=== PATIENT | female | born 1985 | race Caucasian/White ===

== ENCOUNTER → 2021-04-10 09:55 | Outpatient (BNVA) | payer BC, SELFPAY | PROVIDERS: Family Provider Nurse Practitioner; PCP Nurse Practitioner Family; Visit Provider Nurse Practitioner Family | DX: Z00.00 Encounter for general adult medical examination without abnormal findings (principal); E03.9 Hypothyroidism, unspecified; Z13.6 Encounter for screening for cardiovascular disorders; Z79.899 Other long term (current) drug therapy; E55.9 Vitamin D deficiency, unspecified | CPT/HCPCS: 80053; 80061; 81003; 82306; 83036; 83516; 84439; 85025 ==

== ENCOUNTER 2022-11-09 23:05 | Emergency (ER) | payer BC, MEDICAID, SELFPAY ==
[2022-11-09 23:16] VITALS: BP 127/78; PULSE 89; RESP 16; TEMP 36.9; O2SAT 96; BMI 35.1
--- NOTE | 2022-11-09 23:16 | ED_ITS ---
HPI - Headache General: Chief Complaint: Headache Stated Complaint: Pain From top of head to back of head Time Seen by Provider: 11/09/22 23:15 History of Present Illness: 37-year-old female comes in today with complaints of pain radiating from the yazidi area down to the neck across the scalp. Patient reports it does not feel like a headache. Patient denies any fever. Patient reports history of poor dentition with multiple caries. Patient takes routinely levothyroxine for th yroid disorder. Patient denies any other routine medications. Patient appears nontoxic. Patient appears in mild pain. Patient denies history of migraines or neck injury. Review of Systems General: Reports: 10 or more systems reviewed and unremarkable except in HPI and below Neuro: Reports: headache(s) PFSH ED PFSH: Medical History Abnormal Pap smear of cervix Seen in 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 Vitamin D deficiency Surgical History S/P section 3 C-sections Last 2019 - MARC[facility]ada Social History Smoking and tobacco status: current every day smoker Physical Exam Const: COMMON NORMALS: alert HENMT: HEAD & SCALP: occipital foramen tenderness, scalp tenderness and Temporal artery tenderness present MOUTH: Normal oral and palatal mucosa present TEETH & GINGIVA: Yes poor dentition THROAT: posterior oropharynx normal Neck/C-Spine: COMMON NORMALS: no meningeal signs Resp: COMMON NORMALS: normal respiratory effort Cardio: COMMON NORMALS: regular rate RATE: regular rate Back/Pelvis: COMMON NORMALS: thoracic and lumbar spine normal to inspection Extremity: COMMON NORMALS: normal to inspection Neuro: SENSORIUM/ORIENTATION: Yes alert MENINGEAL SIGNS: Yes no meningeal signs Skin: COMMON NORMALS: turgor normal GENERAL SKIN EXAM: turgor normal Course Vital Signs: Vital signs: Vital Signs Temperature 98.5 F 11/09/22 23:16 Pulse Rate 82 11/10/22 00:13 Respiratory Rate 16 11/10/22 00:13 Blood Pressure 134/74 11/10/22 00:13 Pulse Oximetry 98 11/10/22 00:13 Oxygen Delivery Me thod Room Air 11/10/22 00:13 MDM - Headache Medical Decision Making 37-year-old female comes in today with complaints of headache. Patient reports that she has tenderness along the scalp from her yazidi area to her posterior scalp and neck. On exam patient has tenderness of the occipital foramen bilaterally, and bilateral yazidi tenderness. Pupils are equal and reactive. Normal light reflex. Vital signs are normal. Respirations are even lungs are clear to auscultation. Differential diagnosis includes but not limited to occipital neuralgia, tension headache, vasculitis, migraine headache. CT of the head noted some left maxillary sinus disease, no mass effect or acute intracranial bleeding. CBC and CMP showed no significant abnormalities. CRP was 12.7. Patient will be placed on some cephalexin to cover for the sinus disease. Patient be kept on prednisone to treat for occipital neuralgia and prevent recurrence of the headache. Patient was given headache cocktail in the ER which resolved her headache at this time. Patient also given some naproxen for further complaints of pain. Patient was stable and released to home with recommendations for follow-up. Lab Data 11/10/22 00:09 11/10/22 00:[address] 11/09/22 23:27 IMPRESSION: 1. No evidence of acute intracranial hemorrhage, mass effect, or edema. 2. Possible left maxillary sinus disease. Laboratory Results WBC 10.0 10^3/uL (4.0-10.0) 11/10/22 00:09 RBC 4.47 10^6/uL (4.1-5.3) 11/10/22 00:09 Hgb 11.7 g/dL (11.5-15.3) 11/10/22 00:09 Hct 37.9 % (37.0-47.0) 11/10/22 00:09 MCV 84.8 fl (81-99) 11/10/22 00: MCH 26.2 pg (28.0-34.0) L 11/10/22 00: MCHC 30.9 g/dL (30.0-36.0) 11/10/22 00:09 RDW 15.9 % (12.1-15.1) H 11/10/22 00:09 Plt Count 317 10^3/cmm (130-400) 11/10/22 00:09 MPV 11.1 fL (7.4-10.4) H 11/10/22 00:09 Neut % (Auto) 53.7 % 11/10/22 00:09 Lymph % (Auto) 34.2 % 11/10/22 00:09 [place] % (Auto) 8.7 % 11/10/22 00:09 Eos % (Auto) 2.6 % 11/10/22 00:09 Baso % (Auto) 0.7 % 11/10/22 00:09 Neut # (Auto) 5.34 10^3/uL (1.8-7.7) 11/10/22 00:09 Lymph # (Auto) 3.4 10^3/uL (0.8-4.8) 11/10/22 00:09 [place] # (Auto) 0.9 10^3/uL (0.2-0.9) 11/10/22 00:09 Eos # (Auto) 0.3 10^3/uL (0.0-0.8) 11/10/22 00:09 Baso # (Auto) 0.1 10^3/uL (0.0-0.1) 11/10/22 00:09 Nucleated RBC % (auto) 0 % 11/10/22 00:09 Nucleated RBCs # 0.0 /100WBC 11/10/22 00:09 Sodium 135 mmol/L (136-145) L 11/10/22 00:09 Potassium 3.3 mmol/L (3.5-5.1) L 11/10/22 00:09 Chloride 99 mmol/L (98-107) 11/10/22 00:09 Carbon Dioxide 26 mmol/L (22-29) 11/10/22 00:09 Anion Gap 13.3 (5-19) 11/10/22 00:09 BUN 5 mg/dL (6-20) L 11/10/22 00:09 Creatinine 0.7 mg/dL (0.5-0.9) 11/10/22 00:09 GFR Calculation 94.2 mL/min (90-130) 11/10/22 00:09 Glucose 95 mg/dL (65-115) 11/10/22 00:09 Calculated Osmolality 277 mOsm/kg (285-295) L 11/10/22 00:09 Calcium 8.4 mg/dL (8.5-10.5) L 11/10/22 00:09 Total Bilirubin 0.2 mg/dL (0.15-1.2) 11/10/22 00:09 AST 14 U/L (0-32) 11/10/22 00:09 ALT 13 U/L (0-33) 11/10/22 00:09 Alkaline Phosphatase 80 U/L (35-105) 11/10/22 00:09 C-Reactive Protein 12.7 mg/L (0.0-4.9) H 11/10/22 00:09 Total Protein 6.6 g/dL (6.6-8.7) 11/10/22 00:09 Albumin 4.1 g/dL (3.5-5.2) 11/10/22 00:09 Globulin 2.5 g/dL (1.3-4.6) 11/10/22 00:09 Discharge Plan Discharge Patient Disposition: Home Clinical Impression: Bilateral occipital neuralgia Sinusitis Qualifiers: Sinusitis location: unspecified location Chronicity: unspecified Qualified Code(s): J32.9 - Chronic sinusitis, unspecified Condition: Stable Prescriptions: New prednisone 20 mg tablet 20 mg PO BID 3 Days Qty: 6 0RF naproxen 500 mg tablet 500 mg PO BID Qty: 14 0RF Continued cephalexin 500 mg capsule 500 mg PO TID 7 Days Qty: 21 0RF No Action Classic 28 mg iron- 800 mcg tablet PO DAILY levothyroxine 75 mcg capsule 75 mcg PO DAILY 90 Days Qty: 90 1RF mupirocin 2 % ointment 1 applic topical BID Qty: 15 0RF prednisone 20 mg tablet 40 mg PO DAILY Qty: 10 0RF cholecalciferol (vitamin D3) 125 mcg (5,000 unit) capsule 125 mcg PO DAILY Qty: 30 2RF Discharge Orders: Discharge ED (Routine); Ordered 11/10/22 Ordered By: Manish Lima Referrals: Radha Juan FNP [Primary Care Provider] - Discharge Diet: Usual diet Discharge Activity: Increase activity as tolerated Patient Instructions: Pain Management Activity Restrictions/Additional Instructions: Rink plenty of water and fluids. Take medications as directed. Follow-up with primary care for further instructions. Return to ED for new concerns. Coding Level of Care Code ED Reliner for Rafy Farris
--- NOTE | 2022-11-09 23:27 | CTR_ITS ---
PROCEDURE INFORMATION: Exam: CT Head Without Contrast Exam date and time: 11/09/2022 11:33 PM Age: 37 years old Clinical indication: Pain; Headache; Patient HX: C/O BLANCHARD TECHNIQUE: Imaging protocol: Computed tomography of the head without contrast. Radiation optimization: All CT scans at this facility use at least one of these dose optimization techniques: automated exposure control; mA and/or kV adjustment per patient size (includes targeted exams where dose is matched to clinical indication); or iterative reconstruction. REPORTING DATA: Count of CT and Cardiac NM exams in prior 12 months: This patient has received 0 known CTs and 0 known cardiac nuclear medicine studies in the 12 months prior to the current study. COMPARISON: No relevant prior studies available. RADIATION DOSE METRICS: Total DLP (mGy-cm): 1023.97 FINDINGS: Brain: No hemorrhage. Unremarkable white matter. No mass effect. Preserved aldana-white interfaces. Cerebral ventricles: No ventriculomegaly. Paranasal sinuses: Air-fluid level in the left maxillary sinus is partly visualized. Mastoid air cells: Visualized mastoid air cells are well aerated. Bones/joints: Unremarkable. No acute fracture. Soft tissues: Unremarkable. CT/CT head wo con* [id number] IMPRESSION: 1. No evidence of acute intracranial hemorrhage, mass effect, or edema. 2. Possible left maxillary sinus disease.
[2022-11-10] MEDS: metoclopramide 5 mg/mL SDV 2 mL 10 MG IVP (00:06)
[2022-11-10] MEDS: dexamethasone 10 mg/mL INJ 6 MG IVP (00:08)
[2022-11-10] MEDS: diphenhydrAMINE 50 mg/mL SDV 1mL 12.5 MG IVP (00:10)
[2022-11-10] MEDS: ketorolac 30 mg/mL INJ 15 MG IVP (00:12)
[2022-11-10 00:13] VITALS: BP 134/74; PULSE 82; RESP 16; O2SAT 98
[2022-11-10 00:26] LABS: Basophils # 0.1 10^3/uL (0.0-0.1); Basophils % 0.7 %; Eosinophils # 0.3 10^3/uL (0.0-0.8); Eosinophils % 2.6 %; Hematocrit 37.9 % (37.0-47.0); Hemoglobin 11.7 g/dL (11.5-15.3); Lymphocytes # 3.4 10^3/uL (0.8-4.8); Lymphocytes % 34.2 %; Mean Corpuscular HGB Conc 30.9 g/dL (30.0-36.0); Mean Corpuscular Hemoglobin 26.2 pg (28.0-34.0); Mean Corpuscular Volume 84.8 fl (81-99); Mean Platelet Volume 11.1 fL (7.4-10.4); Monocytes # 0.9 10^3/uL (0.2-0.9); Monocytes % 8.7 %; Neutrophils # 5.34 10^3/uL (1.8-7.7); Neutrophils % 53.7 %; Nucleated Red Blood Cells % 0 %; Platelet Count 317 10^3/cmm (130-400); Red Blood Count 4.47 10^6/uL (4.1-5.3); Red Cell Distribution Width 15.9 % (12.1-15.1)
[2022-11-10 00:43] LABS: Alanine Aminotransferase 13 U/L (0-33); Albumin Level 4.1 g/dL (3.5-5.2); Alkaline Phosphatase 80 U/L (35-105); Anion Gap 13.3 (5-19); Aspartate Amino Transferase 14 U/L (0-32); Blood Urea Nitrogen 5 mg/dL (6-20); C Reactive Protein 12.7 mg/L (0.0-4.9); Calcium 8.4 mg/dL (8.5-10.5); Carbon Dioxide 26 mmol/L (22-29); Chloride 99 mmol/L (98-107); Globulin 2.5 g/dL (1.3-4.6); Glomerular Filtration Rate 94.2 mL/min (90-130); Glucose 95 mg/dL (65-115); Osmolality Calculated 277 mOsm/kg (285-295); Potassium 3.3 mmol/L (3.5-5.1); Sodium 135 mmol/L (136-145); Total Bilirubin 0.2 mg/dL (0.15-1.2); Total Protein 6.6 g/dL (6.6-8.7)
[2022-11-10 01:03] LABS: Erythrocyte Sedimentation Rate 13 mm/hr (0-15)
[2022-11-10 01:18] VITALS: BP 107/47; PULSE 79; RESP 16; O2SAT 97
== END 2022-11-10 01:16 | disposition home or self-care (01) ==
PROVIDERS: Emergency Provider Nurse Practitioner Family; PCP Nurse Practitioner
DX: J32.9 Chronic sinusitis, unspecified (principal); E03.9 Hypothyroidism, unspecified; F17.200 Nicotine dependence, unspecified, uncomplicated
CPT/HCPCS: 70450; 80053; 85025; 85651; 86140; 96374; 96375; 99285; J1100; J1200; J1885; J2765

== ENCOUNTER → 2023-04-08 08:17 | Outpatient (BNVA) | payer BC, MEDICAID, SELFPAY | PROVIDERS: PCP Nurse Practitioner; Visit Provider Nurse Practitioner Family | DX: Z01.89 Encounter for other specified special examinations (principal); E03.9 Hypothyroidism, unspecified; Z13.6 Encounter for screening for cardiovascular disorders; E55.9 Vitamin D deficiency, unspecified; Z79.899 Other long term (current) drug therapy; J22 Unspecified acute lower respiratory infection | CPT/HCPCS: 80053; 80061; 81003; 82306; 82607; 82746; 84443; 85025; 86140 ==

== ENCOUNTER 2023-04-15 11:05 | Outpatient (CLI) | payer BC, MEDICAID, SELFPAY ==
--- NOTE | 2023-04-15 11:15 | XR_ITS ---
WS: [id number] Exam: XR cervical spine fl/ex [id number] Date/Time of Exam: 04/15/2023 11:19 AM Reason For Exam: M54.81 - Occipital neuralgia No fracture or dislocation. No significant flexion or extension instability. Disc spaces are preserve d. Posterior elements appear normal. Normal paraspinal soft tissues. IMPRESSION: 1. No flexion or extension instability identified.
== END 2023-04-15 11:06 | disposition home or self-care (01) ==
LOC: RAD 11:06
PROVIDERS: PCP Nurse Practitioner; Visit Provider Nurse Practitioner Family
DX: M54.81 Occipital neuralgia (principal); M54.12 Radiculopathy, cervical region
CPT/HCPCS: 72040

== ENCOUNTER → 2023-05-21 09:02 | Outpatient (BNVA) | payer BC, MEDICAID, SELFPAY | PROVIDERS: PCP Nurse Practitioner; Visit Provider Nurse Practitioner Family | DX: E03.9 Hypothyroidism, unspecified (principal); E53.8 Deficiency of other specified B group vitamins; D52.9 Folate deficiency anemia, unspecified; E78.2 Mixed hyperlipidemia | CPT/HCPCS: 82607; 82746 ==